=== PATIENT | female | born 1965 | race Caucasian/White ===

== ENCOUNTER → 2017-10-17 | Outpatient (CLI) | payer OTHER ==
[~2017-10-17] VITALS: Ht 121.9 cm; Wt 66.2 kg
[~2017-10-17] MED LIST: CEFADROXIL500 MG PO; CENTANY15 GM TP; CIPRO500 MG PO; CLARITIN10 MG PO; CYCLOBENZAPRINE10 MG PO; FLEXERIL 10 MG PO; FLEXERIL10 MG PO; GILTUSS TR TAB1 EACH PO; LEVOTHYROXINE 25 MCG PO; LEVOXYL25 MCG PO; MAXITROL EYE DRO5 ML OP; MEDROL 4 MG PO; NEURONTIN300 MG PO; NEURONTIN800 MG; NEURONTIN800 MG PO; PERCOCET 5/3251 TAB PO; SYNTHROID50 MCG PO; TIZANIDINE HCL2 MG PO; TOBREX5 ML OP; TRAM1TAB98 PO; TRAMADOL HCL50 MG PO; VOLTAREM 50 MG; VOLTAREM 50 MG PO; ZITHROMAX200 MG PO; ZYRTEC10 M3 PO; ZYRTEC10 MG PO
== END | disposition home or self-care (01) ==
LOC: PPHC 08:28
DX: Z00.8 Encounter for other general examination (principal)

== ENCOUNTER 2018-01-06 08:57 | Day surgery (SDC) | payer OTHER | END 2018-01-06 15:00 | disposition home or self-care (01) | LOC: AMB-ENDOS 08:57 | DX: R19.4 Change in bowel habit (principal); K64.8 Other hemorrhoids ==

== ENCOUNTER 2018-03-16 12:00 | Emergency (ER) | payer OTHER ==
[~2018-03-16] VITALS: Ht 149.9 cm; Wt 64.9 kg
[2018-03-16] MEDS ORDERED: ZANTAC 7575 MG (12:35)
[2018-03-16] MEDS ORDERED: PROTONIX40 MG (12:35)
[2018-03-16] MEDS ORDERED: ZYRTEC10 M3 (12:36)
== END 2018-03-16 19:57 | disposition home or self-care (01) ==
LOC: ER 12:00 → EDBD 12:44 → ER 12:44
DX: R42 Dizziness and giddiness (principal); J06.9 Acute upper respiratory infection, unspecified

== ENCOUNTER 2018-03-17 11:36 | Outpatient (CLI) | payer OTHER ==
[~2018-03-17 11:36] MED LIST changes: +PROTONIX40 MG; +ZANTAC 7575 MG; +ZYRTEC10 M3
== END 2018-03-17 11:44 | disposition home or self-care (01) ==
LOC: EDBD 11:36 → LAB 11:36
DX: R73.09 Other abnormal glucose (principal)

== ENCOUNTER 2018-03-19 06:08 | Outpatient (CLI) | payer OTHER | END 2018-03-19 06:24 | disposition home or self-care (01) | LOC: EDBD 06:08 → LAB 06:08 | DX: E03.8 Other specified hypothyroidism (principal) ==

== ENCOUNTER → 2018-03-20 | Emergency (ER) | payer OTHER ==
[~2018-03-20] VITALS: Ht 149.9 cm; Wt 64.9 kg
== END | disposition home or self-care (01) ==
LOC: ER 12:18
DX: R20.2 Paresthesia of skin (principal); F06.4 Anxiety disorder due to known physiological condition

== ENCOUNTER 2018-04-15 10:48 | Outpatient (CLI) | payer OTHER | END 2018-04-15 11:02 | disposition home or self-care (01) | LOC: SONOGRAMA 10:48 | DX: E03.8 Other specified hypothyroidism (principal) ==

== ENCOUNTER 2018-05-20 10:33 | Outpatient (CLI) | payer OTHER | END 2018-05-20 10:55 | disposition home or self-care (01) | LOC: LAB 10:33 | DX: N39.0 Urinary tract infection, site not specified (principal); E03.8 Other specified hypothyroidism ==

== ENCOUNTER 2018-08-14 09:26 | Outpatient (CLI) | payer OTHER | END 2018-08-14 15:18 | disposition home or self-care (01) | LOC: RAD 09:26 | DX: M25.512 Pain in left shoulder (principal) ==

== ENCOUNTER 2018-09-01 09:43 | Outpatient (CLI) | payer OTHER | END 2018-09-01 09:52 | disposition home or self-care (01) | LOC: LAB 09:43 | DX: J11.1 Influenza due to unidentified influenza virus with other respiratory manifestations (principal); J20.0 Acute bronchitis due to Mycoplasma pneumoniae ==

== ENCOUNTER 2018-09-05 08:07 | Outpatient (CLI) | payer OTHER | END 2018-09-05 08:17 | disposition home or self-care (01) | LOC: LAB 08:07 | DX: E03.8 Other specified hypothyroidism (principal) ==

== ENCOUNTER 2019-01-12 07:43 | Outpatient (CLI) | payer OTHER | END 2019-01-12 07:48 | disposition home or self-care (01) | LOC: LAB 07:43 | DX: E03.8 Other specified hypothyroidism (principal) ==

== ENCOUNTER → 2019-01-12 | Outpatient (CLI) | payer OTHER | END | disposition home or self-care (01) | LOC: SONOGRAMA 08:10 | DX: D27.9 Benign neoplasm of unspecified ovary (principal); R10.2 Pelvic and perineal pain ==

== ENCOUNTER → 2019-07-16 | Outpatient (CLI) | payer OTHER | END | disposition home or self-care (01) | LOC: RAD 09:25 | DX: M54.5 Low back pain (principal) ==

== ENCOUNTER 2019-09-10 13:47 | Outpatient (CLI) | payer OTHER | END 2019-09-10 13:51 | disposition home or self-care (01) | LOC: LAB 13:47 | DX: J11.1 Influenza due to unidentified influenza virus with other respiratory manifestations (principal); R05 Cough ==

== ENCOUNTER 2020-01-12 06:36 | Outpatient (CLI) | payer OTHER | END 2020-01-12 12:06 | disposition home or self-care (01) | LOC: LAB 06:36 | PROVIDERS: ATTEND Obstetrics & Gynecology Gynecology | DX: D64.89 Other specified anemias (principal); N39.0 Urinary tract infection, site not specified; E03.8 Other specified hypothyroidism; E55.9 Vitamin D deficiency, unspecified; E78.49 Other hyperlipidemia; Z12.11 Encounter for screening for malignant neoplasm of colon ==

== ENCOUNTER 2020-01-12 07:45 | Outpatient (CLI) | payer OTHER | END 2020-01-12 07:54 | disposition home or self-care (01) | LOC: MAMO-SONO 07:45 | PROVIDERS: ATTEND Obstetrics & Gynecology Gynecology | DX: Z12.31 Encounter for screening mammogram for malignant neoplasm of breast (principal); N60.11 Diffuse cystic mastopathy of right breast; N60.12 Diffuse cystic mastopathy of left breast ==

== ENCOUNTER 2020-12-12 06:22 | Outpatient (CLI) | payer OTHER ==
[2020-12-13] MEDS ORDERED: TRAMADOL HCL50 MG PO (10:29)
[2020-12-13] MEDS ORDERED: FEXMID7.5 MG PO (10:31)
== END 2020-12-12 08:59 | disposition home or self-care (01) ==
LOC: LAB 06:22
PROVIDERS: ATTEND Internal Medicine
DX: E78.49 Other hyperlipidemia (principal); I10 Essential (primary) hypertension; E03.8 Other specified hypothyroidism; E55.9 Vitamin D deficiency, unspecified; R73.03 Prediabetes; Z00.00 Encounter for general adult medical examination without abnormal findings

== ENCOUNTER 2022-05-06 07:13 | Outpatient (CLI) | payer OTHER ==
[~2022-05-06 07:13] MED LIST changes: +FEXMID7.5 MG PO
== END 2022-05-06 07:21 | disposition home or self-care (01) ==
LOC: MAMO-SONO 07:13
DX: Z12.31 Encounter for screening mammogram for malignant neoplasm of breast (principal); N64.4 Mastodynia; E04.2 Nontoxic multinodular goiter; E03.9 Hypothyroidism, unspecified

== ENCOUNTER 2022-12-04 06:12 | Outpatient (CLI) | payer OTHER | END 2022-12-04 06:27 | disposition home or self-care (01) | LOC: LAB 06:12 | DX: M06.9 Rheumatoid arthritis, unspecified (principal); R70.0 Elevated erythrocyte sedimentation rate; M06.4 Inflammatory polyarthropathy; M32.9 Systemic lupus erythematosus, unspecified; M10.9 Gout, unspecified; E03.9 Hypothyroidism, unspecified; I10 Essential (primary) hypertension; R80.9 Proteinuria, unspecified; E78.2 Mixed hyperlipidemia; N18.2 Chronic kidney disease, stage 2 (mild); E86.0 Dehydration; E03.8 Other specified hypothyroidism; Z00.00 Encounter for general adult medical examination without abnormal findings; E11.65 Type 2 diabetes mellitus with hyperglycemia; C25.1 Malignant neoplasm of body of pancreas ==

== ENCOUNTER 2022-12-04 07:10 | Outpatient (CLI) | payer OTHER | END 2022-12-04 08:49 | disposition home or self-care (01) | LOC: TOM 07:10 | DX: R10.84 Generalized abdominal pain (principal); K76.89 Other specified diseases of liver; K58.2 Mixed irritable bowel syndrome ==

== ENCOUNTER → 2023-02-06 06:19 | Outpatient (CLI) | payer OTHER ==
[~2023-02-06 06:19] MED LIST changes: +PREGABALIN25 MG PO; +PREGABALIN50 MG PO
== END | disposition home or self-care (01) ==
LOC: LAB 06:19
PROVIDERS: ATTEND Surgery
DX: R10.32 Left lower quadrant pain (principal); R19.4 Change in bowel habit; K64.2 Third degree hemorrhoids; R19.7 Diarrhea, unspecified

== ENCOUNTER 2023-08-19 06:16 | Outpatient (CLI) | payer OTHER ==
[~2023-08-19 06:16] MED LIST changes: +PREGABALIN75 MG PO
[2023-08-19 07:21] LABS: HEMATOCRIT 35.4 % (36.0-45.00); MEAN CELL VOLUME 96.2 fL (80.00-100.00); MEAN CORPUSCULAR HEMOGLOBIN 32.6 pg (27.00-32.0); MEAN CORPUSCULAR HGB CONC 33.9 g/dl (32.0-36.0); PLATELET COUNT 188 K/uL (150-450); RED BLOOD COUNT 3.68 M/uL (4.00-6.00); RED CELL DISTRIBUTION WIDTH 12.7 % (11.5-14.5)
[2023-08-19 07:23] LABS: ERYTHROCYTE SEDIMENTATION RATE 7 mm/hr
[2023-08-19 07:48] LABS: PH,URINE 7.5 (5.0-8.0); URINE APPEARANCE Clear; URINE BILIRRUBIN Negative (NEGATIVE); URINE BLOOD Negative; URINE COLOR Yellow; URINE GLUCOSE Negative (NEGATIVE); URINE LEUKOCYTE Small; URINE NITRATE Negative; URINE PROTEIN Negative (NEGATIVE)
[2023-08-19 07:51] LABS: URINE BACTERIA 687.8 uL (0.0-1933); URINE EPITHELIAL CELLS 27.9 uL (0.0-38.8); URINE RBC 2.7 uL (0.0-20.8); URINE WBC 19.9 uL (0.0-23.2)
[2023-08-19 08:11] LABS: ALBUMIN 3.5 gm/dL (3.4-5.0); BILIRUBIN TOTAL 0.54 mg/dL (0.3-1.2); CALCIUM 8.9 mg/dL (8.5-10.1); CHOL HDL RATIO 2.7 (0-5.0); CREATININE SERUM 0.73 mg/dL (0.55-1.02); GFR 81.88; GLOBULINA 2.9 G/DL (2.4-3.5); POTASSIUM 4.47 mEq/L (3.5-5.1); T4 FREE 0.99 NG/ML (0.76-1.46); TOTAL PROTEIN 6.4 gm/dL (6.4-8.2)
[2023-08-19 08:18] LABS: TSH 5.63 uIU/mL (0.358-3.74)
== END 2023-08-19 06:17 | disposition home or self-care (01) ==
LOC: LAB 06:16
DX: E03.9 Hypothyroidism, unspecified (principal); I10 Essential (primary) hypertension; E78.2 Mixed hyperlipidemia; M06.9 Rheumatoid arthritis, unspecified; D64.9 Anemia, unspecified; R73.01 Impaired fasting glucose; R80.9 Proteinuria, unspecified; N18.2 Chronic kidney disease, stage 2 (mild)

== ENCOUNTER → 2023-09-05 07:02 | Outpatient (CLI) | payer OTHER ==
[2023-09-05 08:08] LABS: HEMATOCRIT 36.7 % (36.0-45.00); HEMOGLOBIN 12.5 g/dL (12.0-15.00); MEAN CELL VOLUME 94.7 fL (80.00-100.00); MEAN CORPUSCULAR HEMOGLOBIN 32.2 pg (27.00-32.0); PLATELET COUNT 199 K/uL (150-450); RED BLOOD COUNT 3.88 M/uL (4.00-6.00); RED CELL DISTRIBUTION WIDTH 12.5 % (11.5-14.5)
[2023-09-05 08:13] LABS: PH,URINE 5.5 (5.0-8.0); URINE APPEARANCE Clear; URINE BILIRRUBIN Negative (NEGATIVE); URINE BLOOD Negative; URINE COLOR Yellow; URINE GLUCOSE Negative (NEGATIVE); URINE LEUKOCYTE Small; URINE NITRATE Negative; URINE PROTEIN Negative (NEGATIVE); URINE UROBILINOGEN 0.2 E.U./dl
[2023-09-05 08:14] LABS: URINE BACTERIA 492.6 uL (0.0-1933); URINE EPITHELIAL CELLS 13.2 uL (0.0-38.8); URINE WBC 25.7 uL (0.0-23.2)
[2023-09-05 08:25] LABS: URINE RBC 0.4 uL (0.0-20.8)
[2023-09-05 08:40] LABS: ALBUMIN 3.8 gm/dL (3.4-5.0); BILIRUBIN TOTAL 0.53 mg/dL (0.3-1.2); CALCIUM 9.2 mg/dL (8.5-10.1); CREATININE SERUM 0.74 mg/dL (0.55-1.02); GFR 80.61; GLOBULINA 3.3 G/DL (2.4-3.5); POTASSIUM 4.26 mEq/L (3.5-5.1); T4 FREE 1.23 NG/ML (0.76-1.46); TOTAL PROTEIN 7.1 gm/dL (6.4-8.2); TSH 0.662 uIU/mL (0.358-3.74)
== END | disposition home or self-care (01) ==
LOC: LAB 07:02
PROVIDERS: ATTEND Internal Medicine
DX: E78.9 Disorder of lipoprotein metabolism, unspecified (principal); E11.65 Type 2 diabetes mellitus with hyperglycemia; E03.8 Other specified hypothyroidism; I10 Essential (primary) hypertension; N39.0 Urinary tract infection, site not specified

== ENCOUNTER 2023-09-08 08:24 | Outpatient (CLI) | payer OTHER | END 2023-09-08 08:25 | disposition home or self-care (01) | LOC: SONOGRAMA 08:24 | DX: N64.4 Mastodynia (principal); Z12.31 Encounter for screening mammogram for malignant neoplasm of breast ==

== ENCOUNTER → 2024-03-19 07:53 | Outpatient (CLI) | payer OTHER ==
[2024-03-19 09:05] LABS: HEMATOCRIT 38.3 % (36.0-45.00); HEMOGLOBIN 13.1 g/dL (12.0-15.00); MEAN CELL VOLUME 92.7 fL (80.00-100.00); MEAN CORPUSCULAR HEMOGLOBIN 31.7 pg (27.00-32.0); MEAN CORPUSCULAR HGB CONC 34.2 g/dl (32.0-36.0); PLATELET COUNT 216 K/uL (150-450); RED BLOOD COUNT 4.13 M/uL (4.00-6.00); RED CELL DISTRIBUTION WIDTH 12.3 % (11.5-14.5)
[2024-03-19 09:10] LABS: ERYTHROCYTE SEDIMENTATION RATE 12 mm/hr
[2024-03-19 09:19] LABS: URINE APPEARANCE Clear; URINE BILIRRUBIN Negative (NEGATIVE); URINE BLOOD Negative; URINE COLOR Yellow; URINE GLUCOSE Negative (NEGATIVE); URINE KETONE Negative (NEGATIVE); URINE LEUKOCYTE Negative; URINE NITRATE Negative; URINE PROTEIN Negative (NEGATIVE); URINE UROBILINOGEN 0.2 E.U./dl
[2024-03-19 09:30] LABS: URINE EPITHELIAL CELLS 0.7 uL (0.0-38.8); URINE RBC 1.6 uL (0.0-20.8); URINE WBC 1.5 uL (0.0-23.2)
[2024-03-19 09:52] LABS: URIC ACID 4.8 mg/dL (2.5-7.5)
[2024-03-19 10:02] LABS: ALKALINE PHOSPHATASE 94 U/L (50-136); ALT/SGPT 40 U/L (12-78); ANION GAP 5 (10.0-20.0); AST/SGOT 18 U/L (15-37); BILIRUBIN TOTAL 0.61 mg/dL (0.3-1.2); BLOOD UREA NITROGEN 19 mg/dL (7-18); BUN CREA RATIO 26 (7.0-25.0); CARBON DIOXIDE 32 mEq/L (21-32); CHLORIDE 108 mmol/L (98-107); CREATININE SERUM 0.73 mg/dL (0.55-1.02); GLOBULINA 3.1 G/DL (2.4-3.5); GLUCOSE FASTING 104 mg/dL (65-100); OSMOLALITY SERUM 284 MOSM/KG (275-295); SODIUM 141 mmol/L (136-145); TOTAL PROTEIN 7.1 gm/dL (6.4-8.2)
[2024-03-19 10:03] LABS: C-REACTIVE PROTEIN < 0.29 MG/DL (0.00-0.29)
[2024-03-22 10:04] LABS: COMPLEMENT C3 159 mg/dL (82-167); COMPLEMENT C4 35 mg/dL (12-38); CYCLIC CITRULLINE PEPTIDE 3 units (0-19); DNA AB DOUBLE STRABDED < 1 IU/mL (0-9)
== END | disposition home or self-care (01) ==
LOC: LAB 07:53
PROVIDERS: ATTEND Obstetrics & Gynecology Gynecology
DX: N64.9 Disorder of breast, unspecified (principal); I10 Essential (primary) hypertension; M32.10 Systemic lupus erythematosus, organ or system involvement unspecified; M06.4 Inflammatory polyarthropathy; M10.9 Gout, unspecified; R79.89 Other specified abnormal findings of blood chemistry; E03.8 Other specified hypothyroidism; N39.0 Urinary tract infection, site not specified

== ENCOUNTER 2024-06-04 06:50 | Outpatient (CLI) | payer OTHER ==
[2024-06-04 07:32] LABS: HEMATOCRIT 36.5 % (36.0-45.00); HEMOGLOBIN 12.4 g/dL (12.0-15.00); MEAN CELL VOLUME 93.1 fL (80.00-100.00); MEAN CORPUSCULAR HEMOGLOBIN 31.6 pg (27.00-32.0); PLATELET COUNT 209 K/uL (150-450); RED BLOOD COUNT 3.92 M/uL (4.00-6.00)
[2024-06-04 07:37] LABS: ERYTHROCYTE SEDIMENTATION RATE 10 mm/hr
[2024-06-05 09:06] LABS: COMPLEMENT C3 154 mg/dL (82-167); COMPLEMENT C4 34 mg/dL (12-38)
[2024-06-05 11:10] LABS: ANTI THYROID PEROXIDASE < 9 IU/mL (0-34)
[2024-06-05 13:05] LABS: ANTI SCLERODERMA 70 < 0.2 AI (0.0-0.9); ANTI-CENTROMERE AB <0.2 AI (0.0-0.9); rnp 0.2 AI (0.0-0.9); sjogrens ssa < 0.2 AI (0.0-0.9); sjogrens ssb < 0.2 AI (0.0-0.9); smith ab < 0.2 AI (0.0-0.9)
== END 2024-06-04 06:51 | disposition home or self-care (01) ==
LOC: LAB 06:50
DX: D64.9 Anemia, unspecified (principal); N39.0 Urinary tract infection, site not specified; R80.8 Other proteinuria; R79.89 Other specified abnormal findings of blood chemistry; M35.89 Other specified systemic involvement of connective tissue; E55.9 Vitamin D deficiency, unspecified; E03.9 Hypothyroidism, unspecified

== ENCOUNTER 2024-06-04 07:50 | Outpatient (CLI) | payer OTHER | END 2024-06-04 07:55 | disposition home or self-care (01) | LOC: SONOGRAMA 07:50 | DX: M25.50 Pain in unspecified joint (principal); M25.561 Pain in right knee ==

== ENCOUNTER 2024-10-22 06:49 | Outpatient (CLI) | payer OTHER ==
[2024-10-22 07:41] LABS: PH,URINE 5.5 (5.0-8.0); URINE APPEARANCE Clear; URINE BILIRRUBIN Negative (NEGATIVE); URINE BLOOD Negative; URINE COLOR Yellow; URINE GLUCOSE Negative (NEGATIVE); URINE KETONE Negative (NEGATIVE); URINE LEUKOCYTE Moderate; URINE NITRATE Negative; URINE PROTEIN Negative (NEGATIVE); URINE UROBILINOGEN 0.2 E.U./dl
[2024-10-22 07:44] LABS: HEMATOCRIT 39.4 % (36.0-45.00); HEMOGLOBIN 13.2 g/dL (12.0-15.00); MEAN CELL VOLUME 95.5 fL (80.00-100.00); MEAN CORPUSCULAR HEMOGLOBIN 31.9 pg (27.00-32.0); MEAN CORPUSCULAR HGB CONC 33.4 g/dl (32.0-36.0); PLATELET COUNT 183 K/uL (150-450); RED BLOOD COUNT 4.13 M/uL (4.00-6.00); RED CELL DISTRIBUTION WIDTH 11.8 % (11.5-14.5)
[2024-10-22 07:45] LABS: URINE BACTERIA 243.5 uL (0.0-1933); URINE EPITHELIAL CELLS 25.9 uL (0.0-38.8); URINE RBC 3.8 uL (0.0-20.8); URINE WBC 92.4 uL (0.0-23.2)
[2024-10-22 08:14] LABS: ALBUMIN 3.8 gm/dL (3.4-5.0); ALKALINE PHOSPHATASE 97 U/L (50-136); ALT/SGPT 37 U/L (12-78); ANION GAP 7 (10.0-20.0); AST/SGOT 18 U/L (15-37); BLOOD UREA NITROGEN 34 mg/dL (7-18); BUN CREA RATIO 40 (7.0-25.0); CALCIUM 9.3 mg/dL (8.5-10.1); CARBON DIOXIDE 32 mEq/L (21-32); CHLORIDE 107 mmol/L (98-107); CHOL HDL RATIO 2.4 (0-5.0); CHOLESTEROL 196 mg/dL (0-200); CREATININE SERUM 0.86 mg/dL (0.55-1.02); GFR 67.54; GLOBULINA 3.4 G/DL (2.4-3.5); GLUCOSE FASTING 108 mg/dL (65-100); HDL 83 mg/dl (40-60); LDL 103 mg/dl (0-130); OSMOLALITY SERUM 291 MOSM/KG (275-295); PHOSPHOROUS 3.1 mg/dL (2.5-4.9); POTASSIUM 3.98 mEq/L (3.5-5.1); SODIUM 142 mmol/L (136-145); T4 FREE 1.02 NG/ML (0.76-1.46); TOTAL PROTEIN 7.2 gm/dL (6.4-8.2); TRIGLYCERIDES 48 mg/dL (0-150); VLDL 9 (0-39)
[2024-10-22 08:15] LABS: C-REACTIVE PROTEIN < 0.29 MG/DL (0.00-0.29)
[2024-10-22 08:27] LABS: URINE CAST 0.14 uL (0.0-1.40)
== END 2024-10-22 06:56 | disposition home or self-care (01) ==
LOC: LAB 06:49
PROVIDERS: ATTEND Internal Medicine
DX: E11.65 Type 2 diabetes mellitus with hyperglycemia (principal); E78.5 Hyperlipidemia, unspecified; I10 Essential (primary) hypertension; I50.9 Heart failure, unspecified; I11.0 Hypertensive heart disease with heart failure; R73.01 Impaired fasting glucose; E03.8 Other specified hypothyroidism; R80.9 Proteinuria, unspecified; N18.2 Chronic kidney disease, stage 2 (mild); D64.9 Anemia, unspecified; R06.01 Orthopnea; E78.2 Mixed hyperlipidemia; M06.9 Rheumatoid arthritis, unspecified; R80.8 Other proteinuria

== ENCOUNTER 2025-03-09 14:01 | Outpatient (CLI) | payer OTHER ==
[~2025-03-09 14:01] MED LIST changes: +MEDROLPACK PO
== END 2025-03-09 14:05 | disposition home or self-care (01) ==
LOC: RAD 14:01
PROVIDERS: ATTEND Physical Medicine & Rehabilitation
DX: M25.561 Pain in right knee (principal); S80.01XA Contusion of right knee, initial encounter